=== PATIENT | female | born 1990 | race Hispanic/Latino ===

== ENCOUNTER 2017-05-12 23:14 | Emergency (ER) | payer SELFPAY | END 2017-05-13 | disposition home or self-care (01) | LOC: EDH 23:14 | DX: S60.222A Contusion of left hand, initial encounter (principal); D64.9 Anemia, unspecified; Z98.51 Tubal ligation status; X58.XXXA Exposure to other specified factors, initial encounter; Y93.89 Activity, other specified; Y92.39 Other specified sports and athletic area as the place of occurrence of the external cause; Y99.8 Other external cause status | CPT/HCPCS: 73130 ==

== ENCOUNTER 2017-06-22 22:06 | Emergency (ER) | payer SELFPAY | END 2017-06-22 23:18 | disposition home or self-care (01) | LOC: EDH 22:06 | DX: S90.31XA Contusion of right foot, initial encounter (principal); S90.121A Contusion of right lesser toe(s) without damage to nail, initial encounter; X58.XXXA Exposure to other specified factors, initial encounter; Y93.89 Activity, other specified; Y92.39 Other specified sports and athletic area as the place of occurrence of the external cause; Y99.8 Other external cause status | CPT/HCPCS: 73630 ==

== ENCOUNTER 2020-07-11 09:13 | Emergency (ER) | payer OTHER ==
[2020-07-11 10:08] LABS: APPEARANCE,URINE Clear (CLEAR); BILIRUBIN,URINE Negative (NEGATIVE); COLOR,URINE Yellow (YELLOW); GLUCOSE, URINE (UA) Negative (NEGATIVE); KETONES,URINE >=80 mg/dL (NEGATIVE); LEUKOCYTE ESTERASE ,URINE Trace (NEGATIVE); NITRATE,URINE Negative (NEGATIVE); OCCULT BLOOD,URINE Large (NEGATIVE); PH,URINE 6.5 (5.0-8.0); PROTEIN,URINE Negative (NEGATIVE)
[2020-07-11 10:11] LABS: HCG,QUAL RESULT NEGATIVE (NEGATIVE)
[2020-07-11 10:14] LABS: BACTERIA,URINE Moderate /HPF (None Seen); SQUAMOUS EPITHELIAL CELL,UR Moderate /HPF (0-2)
[2020-07-11] MEDS ORDERED: PROCHLORPERAZINE EDISYLATE 10 MG/2 ML VIAL ONE (10:27)
[2020-07-11] MEDS ORDERED: DiphenhydrAMINE HCL 50 MG/ML VIAL ONE (10:27)
[2020-07-11] MEDS ORDERED: SODIUM CHLORIDE 0.9% 1000ML 1,000 ML IV ONE (10:28)
[2020-07-11 10:43] LABS: AMPHET/METH SCREEN,URINE NEGATIVE (NEGATIVE); BARBITURATE SCREEN, URINE NEGATIVE (NEGATIVE); BENZODIAZEPINES SCREEN,URINE NEGATIVE (NEGATIVE); CANNABINOID SCREEN,URINE NEGATIVE (NEGATIVE); COCAINE SCREEN,URINE NEGATIVE (NEGATIVE); OPIATE SCREEN,URINE NEGATIVE (NEGATIVE); PHENCYCLIDINE SCREEN,URINE NEGATIVE (NEGATIVE)
== END 2020-07-11 12:33 | disposition home or self-care (01) ==
LOC: EDH 09:13
DX: G43.119 Migraine with aura, intractable, without status migrainosus (principal); N39.0 Urinary tract infection, site not specified; D64.9 Anemia, unspecified; Z20.822 Contact with and (suspected) exposure to COVID-19
CPT/HCPCS: 80305; 81001; 81025; 87088; 87426; 87635; 87804 ×2; 96361; 96374; 96375; 99284; C9803; J0780; J1200; J7030

== ENCOUNTER 2024-02-06 22:51 | Emergency (ER) | payer OTHER ==
[~2024-02-06] VITALS: Ht 154.9 cm; Wt 59.0 kg
--- NOTE | 2024-02-06 22:56 | NUR ---
COVID, FLU AND STREP SWABS COLLECTED AND SENT [facility] PROVIDED
[2024-02-06 23:17] LABS: SARS-CoV-2, RNA, NAAT NEGATIVE SARS CoV-2 (NEGATIVE)
[2024-02-06 23:19] LABS: RAPID GROUP A STREP positive (NEGATIVE)
[2024-02-06 23:21] LABS: INFLUENZA TYPE A Negative For Type A (NEGATIVE); INFLUENZA TYPE B Negative For Type B (NEGATIVE)
--- NOTE | 2024-02-07 00:06 | ERN ---
ED Note History of Present Illness Stated Complaint: VOMITING, HEADACHE, COLD SWEATS Chief Complaint: Multiple Complaints Time Seen by MD: 22:53 Time Seen by Midlevel: 22:53 Dictation: The patient is a 33-year-old female with a history of tubal ligation who presents to the emergency department with complaints of headache, cold sweats, fatigue, nausea and nonbloody vomiting onset today around noon. Patient denies any cough, diarrhea or constipation, abdominal pain, urinary discomfort. Denies any sore throat or ear pain. Allergies: Coded Allergies: No Known Drug Allergies (Unverified Allergy, 06/21/11) Home Meds Active Scripts Ondansetron (Ondansetron Odt) 4 Mg Tab.rapdis, 4 MG PO Q6HPRN PRN for nausea, # 16 TAB 0 Refills Prov:TERENCE NIÑO [facility] 02/07/24 Amoxicillin (Amoxicillin) 500 Mg Tablet, 1 TAB PO BID for 10 Days, #20 TAB 0 Refills Prov:TERENCE NIÑO [facility] 02/07/24 Past Medical History Past Medical History: No Pertinent History Surgical History: BTL LMP: Dec 24, 2023 RN Note Reviewed/Agreed w/PFSH: Yes Review of System Dictation Constitutional: Negative for fever,chills, and weight loss Eyes: Negative for injury, pain,redness, and discharge ENT: Negative for injury,pain or swelling Cardiovascular: Negative for chest pain, palpitations, and edema Respiratory: Negative for shortness of breath, cough, and wheezing, Abdomen/GI: Negative for abdominal pain, diarrhea, and constipation positive for nausea, vomiting Back: Negative for injury and pain : Negative for injury, bleeding and discharge MS/Extremity: Negative for injury and deformity Skin: Negative for rash, and discoloration Neuro: Negative for numbness, tingling, and seizure positive for weakness, headache Psych: Negative for suicide ideation, homicidal ideation, and hallucinations Initial Vital Sign VS Vital Signs Date Time Temp Pulse Resp B/P (MAP) Pulse Ox O2 Delivery O2 Flow Rate FiO2 02/06/24 22:53 97.2 96 20 124/76 98 Room Air 02/07/24 02:01 0 21 Physical Exam Dictation Vital Signs reviewed General Appearance: Alert, oriented x 3, no acute distress, well developed, nourished. Head and Face: non-traumatic. Eyes: PERRL, pink conjunctivas, eyelid no trauma, anterior chamber with arcus senilis. Ears: Pinnas intact and no signs of trauma or erythema ear canals clear and no discharge TM no erythema Nose: No discharge, no bleeding. Oropharynx: Mouth normal, tongue pink. pharynx clear,no erythema, tonsils no exudates, no abscesses noted, mucous membrane moist Neck: Supple, non-tender, no thyromegaly, no masses, no JVD, no bruits Breast:Deferred Chest:No tenderness, no crepitus, no paradoxical movement, no retractions Lungs:Clear, well-ventilated, symmetric, no rales, no wheezing, no rhonchi, no stridor, good breath sounds bilaterally Heart: Regular rate, regular rhythm, no murmur, no gallops Vascular: no peripheral edema, Abdomen: Soft, positive bowel sounds, nondistended, no guarding, nontender, no rebound, no masses no hepatomegaly, no splenomegaly, no Warner's sign, no hernias. Rectal: Deferred Genital: Deferred Neurological: Normal speech, motor function intact, sensory function intact , upper extremities equal in strength, lower extremities equal in strength, no facial droop Musculoskeletal: Neck nontender, full range of motion, back nontender, full range of motion, Extremities: nontender, full range of motion Skin: Color pink, dry, no turgor, no rash, no lacerations, no abrasions, no contusions. Lymphatic: Deferred Results (Laboratory/Radiology) Laboratory/Radiology Laboratory Tests Test 02/06/24 22:56 02/07/24 00:04 02/07/24 01:24 Influenza Type A Antigen Negative For Type A Influenza Type B Antigen Negative For Type B SARS-CoV-2, RNA, NAAT NEGATIVE SARS CoV-2 Group A Streptococcus Rapid positive (NEGATIVE) *A White Blood Count 8.6 K/uL (4.8-10.8) Red Blood Count 4.86 MIL/uL (4.00-5.50) Hemoglobin 14.4 g/dL (12.0-16.0) Hematocrit 41.9 % (36-48) Mean Corpuscular Volume 86.2 fL (79-99) Mean Corpuscular Hemoglobin 29.6 pg (27.0-33.0) Mean Corpuscular Hemoglobin Concent 34.4 g/dL (32.0-36.0) Red Cell Distribution Width 11.9 % (11.0-15.5) Platelet Count 267 K/uL (130-400) Mean Platelet Volume 10.3 fL (7.5-10.5) Immature Granulocyte % (Auto) 0.3 % (0-1) Neutrophils (%) (Auto) 88.2 % (40.0-77.0) H Lymphocytes (%) (Auto) 9.0 % (21.0-51.0) L Monocytes (%) (Auto) 2.4 % (3.0-13.0) L Eosinophils (%) (Auto) 0.0 % (0.0-8.0) Basophils (%) (Auto) 0.1 % (0.0-5.0) Neutrophils # (Auto) 7.6 K/uL (1.8-7.7) Lymphocytes # (Auto) 0.8 K/uL (1.0-4.8) L Monocytes # (Auto) 0.2 K/uL (0.1-1.0) Eosinophils # (Auto) 0.00 K/uL (0.00-0.70) Basophils # (Auto) 0.01 K/uL (0.00-0.20) Absolute Immature Granulocyte (auto 0.03 K/uL (0-1) Nucleated Red Blood Cells 0.0 % (0.0-0.19) White Cell Morphology Comment See comments Sodium Level 140 mmol/L (136-145) Potassium Level 4.2 mmol/L (3.5-5.1) Chloride Level 102 mmol/L (101-111) Carbon Dioxide Level 27 mmol/L (21-32) Blood Urea Nitrogen 11 mg/dL (7-18) Creatinine 0.7 mg/dL (0.5-1.0) Glomerular Filtration Rate Calc 116 mL/min (>90) Random Glucose 100 mg/dL (70-105) Total Calcium 8.9 mg/dL (8.5-10.1) Urine Color COLORLESS (YELLOW) Urine Appearance CLEAR (CLEAR) Urine pH 5.5 (5.0-8.0) Urine Specific [place] 1.010 (1.001-1.031) Urine Protein NEGATIVE mg/dL (NEGATIVE) Urine Glucose (UA) NEGATIVE mg/dL (NEGATIVE) Urine Ketones 100 mg/dL (NEGATIVE) H Urine Occult Blood LARGE (NEGATIVE) H Urine Nitrate NEGATIVE (NEGATIVE) Urine Bilirubin NEGATIVE mg/dL (NEGATIVE) Urine Urobilinogen 0.2 mg/dL (0.2-1.0) Urine Leukocyte Esterase NEGATIVE Trevin/uL Urine RBC 2-5 /HPF (0-1) H Urine WBC 2-5 /HPF (0-1) H Urine Squamous Epithelial Cells RARE /HPF (0-2) Urine Bacteria FEW /HPF (None Seen) Labs Reviewed?: Yes ED Course ED Course Orders Procedure Category Date Status Time Covid Rna Naat LAB 02/06/24 Complete 22:56 Influenza Type A & B, LAB 02/06/24 Complete Rapid 22:56 Rapid (Group A Strep) LAB 02/06/24 Complete 22:56 Urinalysis Profile LAB 02/06/24 Complete 22:56 Cbc With Differential LAB 02/06/24 Complete 23:20 0.9%Nacl 1000ml (Ns PHA 02/06/24 Complete 1000ml) 23:30 Ondansetron 4mg Inj PHA 02/06/24 Complete (Zofran 4mg Inj) 23:30 Basic Metabolic Panel LAB 02/06/24 Complete 23:20 Acetaminophen 500mg PHA 02/06/24 Complete Tab (Tylenol 500mg T 23:30 Testing, LAB 02/07/24 Logged Serum Hcg 00:13 Amoxicillin 500mg Cap PHA 02/07/24 Complete (Amoxicillin 500mg 01:00 Metoclopramide 10 PHA 02/07/24 Complete Mg/2 Ml Vial (Reglan 1 01:00 Diphenhydramine Hcl PHA 02/07/24 Complete (Benadryl Inj) 01:00 ,Urine Test LAB 02/07/24 Verified 02:03 Current Medications Medications (Trade) Dose Ordered Sig/Presley Route PRN Reason Start Time Stop Time Status Last Admin Dose Admin Acetaminophen (TYLenol 500MG TAB) 1,000 mg ONCE ONCE PO 02/06/24 23:30 02/06/24 23:31 DC 02/07/24 00:08 Amoxicillin (Amoxicillin 500mg Cap) 500 mg ONCE ONCE PO 02/07/24 01:00 02/07/24 01:01 DC 02/07/24 01:01 Diphenhydramine HCl (BENAdryl INJ) 25 mg ONCE ONCE IV 02/07/24 01:00 02/07/24 01:01 DC 02/07/24 01:01 Metoclopramide HCl (regLAN 10MG IV) 10 mg ONCE ONCE IVP 02/07/24 01:00 02/07/24 01:01 DC 02/07/24 01:01 Ondansetron HCl (zoFRAN 4MG INJ) 4 mg ONCE ONCE IVP 02/06/24 23:30 02/06/24 23:31 DC 02/07/24 00:08 Sodium Chloride 1,000 ml @ 0 mls/hr ONCE ONCE IV 02/06/24 23:30 02/06/24 23:31 DC 02/07/24 00:08 Vital Signs Date Time Temp Pulse Resp B/P (MAP) Pulse Ox O2 Delivery O2 Flow Rate FiO2 02/07/24 02:01 99.1 96 16 111/63 100 Room Air* 0 21 02/06/24 22:53 97.2 96 20 124/76 98 Room Air Medical Decision Making MDM The patient is a 33-year-old female with a history of tubal ligation who presents to the emergency department with complaints of headache, cold sweats, fatigue, nausea and nonbloody vomiting onset today around noon. Patient denies any cough, diarrhea or constipation, abdominal pain, urinary discomfort. Denies any sore throat or ear pain. CBC showed no leukocytosis, no anemia, chemistry showed no electrolyte imbalance, normal renal function, serology positive for strep. Patient will be giving antibiotics. Patient on reassessment reports improvement in headache. Continues neurologically intact and with a soft nontender abdomen. Patient in no acute distress will be discharged to follow up with PCP. Differential diagnosis: Electrolyte imbalance, dehydration, gastroenteritis, viral illness Need for hospitalization: Patient does not meet criteria for hospitalization. There are no social concerns with this patient. DX & DISP Disposition: Discharge Departure Impression: Primary Impression: Strep throat Additional Impressions: Headache, Nausea and vomiting Condition: Stable Scripts Ondansetron (Ondansetron Odt) 4 Mg Tab.rapdis 4 MG PO Q6HPRN PRN for nausea, #16 TAB 0 Refills Prov: TERENCE NIÑO [facility] 02/07/24 Amoxicillin (Amoxicillin) 500 Mg Tablet 1 TAB PO BID for 10 Days, #20 TAB 0 Refills Prov: TERENCE NIÑO [facility] 02/07/24 Additional Instructions: FOLLOW-UP WITH PRIMARY CARE PROVIDER IN 1 TO 2 DAYS. TAKE MEDICATIONS DIRECTED HERE IN THE EMERGENCY ROOM. OKAY TO CONTINUE HOME MEDICATIONS UNLESS OTHERWISE DISCUSSED DURING YOUR VISIT IN THE EMERGENCY ROOM TODAY. RETURN TO YOUR NEAREST EMERGENCY ROOM IF SYMPTOMS WORSEN OR IF THERE IS NO IMPROVEMENT. CALL 911 IF YOU NEED IMMEDIATE ASSISTANCE. TAKE TYLENOL OR MOTRIN [id number] NEEDED AND IF NO CONTRAINDICATIONS ARE PRESENT. INCREASE ORAL HYDRATION. A WOUND CULTURE OR URINE CULTURE WAS ORDERED HERE IN THE EMERGENCY ROOM DEPARTMENT PLEASE FOLLOW-UP WITH PRIMARY CARE PROVIDER AND ADVISE THEM TO GET REPEAT PORTS FROM OUR FACILITY. IF YOU HAD ANY ALEXEI WRAP/SPLINTS T HAT WERE APPLIED HERE, PLEASE DO NOT REMOVE THEM UNTIL YOU SEE YOUR PRIMARY CARE OR SPECIALTY. Referrals: Jorge Luis SANTOS MD (PCP) I have reviewed the case, and I agree with, Diagnosis and Plan TERENCE NIÑO [facility] Feb 07, 2024 00:05
[2024-02-07] MEDS: ondanSETRON 4MG INJ IVP ONE (00:08)
[2024-02-07] MEDS: 0.9%NACL 1000ML 1,000 ML IV ONE (00:08)
[2024-02-07] MEDS: acetaMINOPHEN 500 MG TABLET PO ONE (00:08)
[2024-02-07 00:11] LABS: BASOPHILS # (AUTO) 0.01 K/uL (0.00-0.20); BASOPHILS % (AUTO) 0.1 % (0.0-5.0); HEMATOCRIT 41.9 % (36-48); IMMATURE GRANULOCYTE ABSOLUTE 0.03 K/uL (0-1); LYMPHOCYTES # (AUTO) 0.8 K/uL (1.0-4.8); MEAN CORPUSCULAR HEMOGLOBIN 29.6 pg (27.0-33.0); MEAN CORPUSCULAR HGB CONC 34.4 g/dL (32.0-36.0); MEAN CORPUSCULAR VOLUME 86.2 fL (79-99); MONOCYTES # (AUTO) 0.2 K/uL (0.1-1.0); MONOCYTES % (AUTO) 2.4 % (3.0-13.0); NEUTROPHILS # (AUTO) 7.6 K/uL (1.8-7.7); NEUTROPHILS % (AUTO) 88.2 % (40.0-77.0); PLATELET COUNT (AUTO) 267 K/uL (130-400); RED BLOOD CELL COUNT(AUTO) 4.86 MIL/uL (4.00-5.50); RED CELL DISTRIBUTION WIDTH 11.9 % (11.0-15.5); WHITE BLOOD COUNT (AUTO) 8.6 K/uL (4.8-10.8)
[2024-02-07 00:19] LABS: CREATININE 0.7 mg/dL (0.5-1.0); POTASSIUM 4.2 mmol/L (3.5-5.1)
[2024-02-07] MEDS: AMOXICILLIN 500 MG CAPSULE PO ONE (01:01)
[2024-02-07] MEDS: metoCLOPRAmide 10 MG/2 ML VIAL IVP ONE (01:01)
[2024-02-07] MEDS: DiphenhydrAMINE HCL 50 MG/ML VIAL IV ONE (01:01)
[2024-02-07 01:33] LABS: APPEARANCE,URINE CLEAR (CLEAR); BILIRUBIN,URINE NEGATIVE (NEGATIVE); COLOR,URINE COLORLESS (YELLOW); GLUCOSE, URINE (UA) NEGATIVE (NEGATIVE); KETONES,URINE 100 mg/dL (NEGATIVE); LEUKOCYTE ESTERASE ,URINE NEGATIVE Leu/uL (NEGATIVE); NITRATE,URINE NEGATIVE (NEGATIVE); OCCULT BLOOD,URINE LARGE (NEGATIVE); PH,URINE 5.5 (5.0-8.0); PROTEIN,URINE NEGATIVE (NEGATIVE); UROBILINOGEN,URINE 0.2 mg/dL (0.2-1.0)
[2024-02-07] MEDS ORDERED: ONDA-243 PO (01:33)
[2024-02-07] MEDS ORDERED: AMOX500T2 PO (01:33)
[2024-02-07 01:34] LABS: ADD UA MICROSCOPIC YES
[2024-02-07 01:35] LABS: BACTERIA,URINE FEW /HPF (None Seen); MUCUS,URINE RARE LPF (None Seen); SQUAMOUS EPITHELIAL CELL,UR RARE /HPF (0-2)
[2024-02-07 02:01] VITALS: BP 111/63; PULSE 96; RESP 16; TEMP 99.1; O2SAT 100
== END 2024-02-07 02:29 | disposition home or self-care (01) ==
LOC: EDH 22:51
DX: J02.0 Streptococcal pharyngitis (principal); R51.9 Headache, unspecified; R11.2 Nausea with vomiting, unspecified; Z98.51 Tubal ligation status; Z20.822 Contact with and (suspected) exposure to COVID-19
CPT/HCPCS: 99284; 96374; 87635; 80048; 85025; 87880; 87804 ×2; 81001; 81025; 36415; 96375; J7030; J2405; J1200; J2765